=== PATIENT | female | born 1995 | race Caucasian/White ===

== ENCOUNTER 2022-11-27 22:40 | Emergency (ER) | payer OTHER ==
[~2022-11-27] VITALS: Ht 152.4 cm; Wt 109.3 kg
[~2022-11-27 22:40] MED LIST: CATAFLAM50 MG PO
[2022-11-27] MEDS ORDERED: CETIRIZINE HYDR10 MG PO (22:51)
[2022-11-27] MEDS ORDERED: MONTELUKAST SOD10 MG PO (22:51)
[2022-11-27] MEDS ORDERED: PROPRANOLOL ER80 MG PO (22:51)
[2022-11-27] MEDS ORDERED: LEVOTHYROXINE75 MCG PO (22:51)
[2022-11-27] MEDS ORDERED: FAMOTIDINE40 MG PO (22:52)
[2022-11-27] MEDS ORDERED: VENT7GM INH (22:53)
== END 2022-11-28 00:10 | disposition home or self-care (01) ==
LOC: ED 22:40
DX: J02.9 Acute pharyngitis, unspecified (principal); R50.9 Fever, unspecified; Z88.1 Allergy status to other antibiotic agents; Z79.899 Other long term (current) drug therapy; Z90.89 Acquired absence of other organs

== ENCOUNTER 2023-09-27 14:15 | Emergency (ER) | payer SELFPAY ==
[~2023-09-27] VITALS: Ht 152.4 cm; Wt 112.9 kg
[~2023-09-27 14:15] MED LIST changes: +CETIRIZINE HYDR10 MG PO; +FAMOTIDINE40 MG PO; +LEVOTHYROXINE75 MCG PO; +MONTELUKAST SOD10 MG PO; +PROPRANOLOL ER80 MG PO; +VENT7GM INH
[2023-09-27 14:51] LABS: BASO % 0.3 % (0.0-1.0); EOS % 0.1 % (1.0-4.0); HEMATOCRIT 46.9 % (37.0-47.0); LYMPH # 0.8 10*3/uL (1.3-4.4); LYMPH % 6.8 % (27.0-41.0); MEAN CELL VOLUME 93.4 fl (81.0-99.0); MEAN CORPUSCULAR HGB 29.9 pg (27.0-31.0); MEAN PLATELET VOLUME 10.6 fl (9.6-12.3); MONO # 0.4 10*3/uL (0.1-1.0); MONO % 3.6 % (3.0-9.0); NEUT # 10.4 10*3/uL (2.3-7.9); NEUT % 88.9 % (47.0-73.0); PLATELET COUNT AUTOMATED 314 10*3/uL (130-400); RED BLOOD COUNT 5.02 10*6/uL (4.10-5.10); RED CELL DISTRI WIDTH 12.9 % (0-14.5); WHITE BLOOD COUNT 11.7 10*3/uL (4.8-10.8)
[2023-09-27 15:06] LABS: BILIRUBIN Negative (Negative); BLOOD Negative (Negative); CLARITY Cloudy (Clear); COLOR Yellow (Yellow); GLUCOSE Negative (Negative); KETONE Trace (Negative); LEUKO ESTERASE 1+ (Negative); NITRITE Negative (Negative); PH 5.5 (4.5-8.0); SPECIFIC GRAVITY >= 1.030 (1.001-1.030)
[2023-09-27 15:17] LABS: BACTERIA TRACE; EPITHELIAL CELLS 16-20; MUCOUS 1+
[2023-09-27 15:19] LABS: ALKALINE PHOSPHATASE 112 U/L (46-116); BUN 10 mg/dl (9-23); CHLORIDE 108 mmol/L (98-107); LIPASE 32 U/L (12-53); POTASSIUM 3.7 mmol/L (3.4-5.1); SGPT/ALT 113 U/L (5-49); TOTAL PROTEIN 7.6 gm/dL (6.0-8.0)
[2023-09-27] MEDS ORDERED: ONDANSETRON4 MG SL (16:06)
== END 2023-09-27 16:13 | disposition home or self-care (01) ==
LOC: ED 14:15
PROVIDERS: Nurse Practitioner Family
DX: B34.9 Viral infection, unspecified (principal); Z20.822 Contact with and (suspected) exposure to COVID-19; R11.2 Nausea with vomiting, unspecified; R19.7 Diarrhea, unspecified; J45.909 Unspecified asthma, uncomplicated; Z88.1 Allergy status to other antibiotic agents; Z90.89 Acquired absence of other organs; Z87.891 Personal history of nicotine dependence; Z79.899 Other long term (current) drug therapy

== ENCOUNTER 2023-09-29 22:09 | Emergency (ER) | payer OTHER ==
[~2023-09-29] VITALS: Ht 152.4 cm; Wt 111.1 kg
[~2023-09-29 22:09] MED LIST changes: +ONDANSETRON4 MG SL
== END 2023-09-30 00:21 | disposition home or self-care (01) ==
LOC: ED 22:09
DX: J10.1 Influenza due to other identified influenza virus with other respiratory manifestations (principal); Z20.822 Contact with and (suspected) exposure to COVID-19; J45.909 Unspecified asthma, uncomplicated; Z88.1 Allergy status to other antibiotic agents; Z90.89 Acquired absence of other organs